=== PATIENT | female | born 1995 | race Hispanic/Latino ===

== ENCOUNTER 2018-10-27 11:24 | Inpatient (IN) | payer MEDICAID, OTHER ==
[~2018-10-27] VITALS: Ht 154.9 cm; Wt 45.8 kg
[2018-10-27 12:33] LABS: BASOPHILS % (AUTO) 0.3 % (0.0-5.0); EOSINOPHILS % (AUTO) 0.4 % (0.0-8.0); HEMATOCRIT 38.2 % (36-48); LYMPHOCYTES % (AUTO) 14.4 % (21.0-51.0); MEAN CORPUSCULAR HEMOGLOBIN 30.3 pg (27.0-33.0); MEAN CORPUSCULAR HGB CONC 34.1 g/dL (32.0-36.0); MONOCYTES % (AUTO) 4.4 % (3.0-13.0); NEUTROPHILS % (AUTO) 80.5 % (40.0-77.0); NUCLEATED RED BLOOD CELLS 0.1 % (0.0-0.19); PLATELET COUNT (AUTO) 266 K/uL (130-400); RED CELL DISTRIBUTION WIDTH 12.7 % (11.0-15.5); WHITE BLOOD COUNT (AUTO) 8.9 K/uL (4.8-10.8)
[2018-10-27 12:50] LABS: CREATININE 0.7 mg/dL (0.5-1.5); POTASSIUM 3.5 mmol/L (3.5-5.1)
[2018-10-27 12:51] LABS: INR 1.08 (0.85-1.15); PARTIAL THROMBOPLASTIN TIME 30.3 SEC (26.3-35.5); PROTHROMBIN TIME 11.3 SEC (9.6-11.6)
[2018-10-27 12:56] LABS: ALBUMIN 3.9 g/dL (3.5-5.0); BILIRUBIN,TOTAL 0.8 mg/dL (0.2-1.0); TOTAL PROTEIN, SERUM 8.2 g/dL (6.0-8.3)
[2018-10-27 13:03] LABS: APPEARANCE,URINE Clear (CLEAR); BILIRUBIN,URINE Negative (NEGATIVE); COLOR,URINE Yellow (YELLOW); GLUCOSE, URINE (UA) Negative (NEGATIVE); HCG,QUAL RESULT NEGATIVE (NEGATIVE); KETONES,URINE Trace mg/dL (NEGATIVE); LEUKOCYTE ESTERASE ,URINE Negative (NEGATIVE); NITRATE,URINE Negative (NEGATIVE); OCCULT BLOOD,URINE Negative (NEGATIVE); PROTEIN,URINE Negative (NEGATIVE)
[2018-10-27 13:12] LABS: BACTERIA,URINE Rare /HPF (None Seen); MUCUS,URINE Few LPF (None Seen); RBC,URINE 0-1 /HPF (0-1); SQUAMOUS EPITHELIAL CELL,UR Moderate /HPF (0-2)
[2018-10-27] MEDS ORDERED: APIXABAN 2.5 MG TABLET PO ONE (13:14)
[2018-10-27 13:31] LABS: B-TYPE NATRIURETIC PEPTIDE 11 pg/mL (0-100)
[2018-10-27] MEDS ORDERED: ACETAMINOPHEN 325 MG TAB PO PRN (15:15)
[2018-10-27 15:50] VITALS: BP 145/96
[2018-10-27] MEDS ORDERED: IOHEXOL-350 75 ML VIAL IV ONE (17:04)
--- NOTE | 2018-10-27 17:20 | NUR ---
DR. GREENE CONSULT DR. GREENE MADE AWARE OF CONSULT CALLED BY [employer] FOR ELEVATED D DIMER. PER , ACKNOWLEDGES CONSULT, PLACED UNDER CENSUS.
[2018-10-27 20:00] VITALS: BP 125/86
[2018-10-27] MEDS: FAMOTIDINE 20MG TAB 20 MG TAB PO SCH (20:10)
[2018-10-27] MEDS: ENOXAPARIN SODIUM 40 MG/0.4 ML SYRINGE SQ SCH (20:11)
[2018-10-27 23:55] VITALS: BP 119/75
[2018-10-28 03:30] VITALS: BP 111/76
[2018-10-28 07:52] VITALS: BP 126/77
[2018-10-28] MEDS: FAMOTIDINE 20MG TAB 20 MG TAB PO SCH ×2 (07:57→21:32)
[2018-10-28] MEDS: ENOXAPARIN SODIUM 40 MG/0.4 ML SYRINGE SQ SCH ×2 (07:58→21:41)
[2018-10-28 10:11] LABS: AMPHET/METH SCREEN,URINE NEGATIVE (NEGATIVE); BARBITURATE SCREEN, URINE NEGATIVE (NEGATIVE); BENZODIAZEPINES SCREEN,URINE NEGATIVE (NEGATIVE); CANNABINOID SCREEN,URINE NEGATIVE (NEGATIVE); COCAINE SCREEN,URINE NEGATIVE (NEGATIVE); OPIATE SCREEN,URINE NEGATIVE (NEGATIVE); PHENCYCLIDINE SCREEN,URINE NEGATIVE (NEGATIVE)
--- NOTE | 2018-10-28 10:14 | NUR ---
Message left on 's voice mail to notify of consult. Awaiting call back.
--- NOTE | 2018-10-28 10:30 | NUR ---
Dr. Burch returned call; notified of consult. He agreed to see today.
[2018-10-28 10:51] VITALS: BP 120/79
--- NOTE | 2018-10-28 10:51 | NUR ---
Rec'd call from Dr. Umanzor (IR); he stated that he would be able to proceed with IV TPA as ordered, but it must be initiated Wednesday as it is a multi-day process and cannot be completed over the weekend (today is wednesday). Notified ordering provider, Rachel Lutz NP. Rec'd order to continue with planned transfer to [facility] for now.
--- NOTE | 2018-10-28 11:00 | NUR ---
[facility] LIV[facility] W MOM, INDP, NO DME, STUDENT STARTING BACK TO [employer] [place], GOES TO [facility], GAVE MOM THE ELIQUIS 30 DAY COUPON AND THE PATIENT ASSISTANCE FORM FOR CONTINUED CARE.
--- NOTE | 2018-10-28 11:01 | NUR ---
SEE INITIAL NOTE Addendum: 10/28/18 at 1843 by ALEX BURNS RN CM Amended: Links added.
--- NOTE | 2018-10-28 11:30 | NUR ---
BIA PAYNE GIVEN TO MOM AND PATIENT ASSITSTANC EFROM FOR CONTINUED DISCOUNT Addendum: 10/28/18 at 1844 by ALEX BURNS RN CM Amended: Links added.
--- NOTE | 2018-10-28 12:02 | NUR ---
Report given to 2nd floor nurse ROSIBEL Christensen. Updated pt and mother regarding plan of care, transfer, procedure planned for Wednesday, etc. Pt transferred to room 202. Pt in stable condition at this time.
--- NOTE | 2018-10-28 12:10 | NUR ---
PT IN ROOM, TRANSFERRED FROM 4TH FLOOR AAOX3, IN NO ACUTE DISTRESS, NO SOB, LUNGS SOUNDS CLEAR BILATERALLY TO ALL ANTERIOR AND POSTERIOR LUNG HODGES, HEART STRONG AND REGULAR, NORMAL S1 AND S2, BOWEL SOUNDS NORMAL ACTIVE X4 QUADRANTS, NO TENDERNESS, SOFT, PERIPHERAL PULSES PRESENT +2 TO ALL 4 EXTREMITIES, +2 EDEMA NOTED TO THE LLE, NO EDEMA TO RLE, IV INTACT PATENT TO RIGHT A/C 20G. SKIN NO LESIONS NOR SKIN TEARS NOTED, NO BRUISES. RECEIVED REPORT FORM 4TH FLOOR ROSIBEL YANES AT 12:05.
--- NOTE | 2018-10-28 12:59 | NUR ---
HEAD TO TOE ASSESSMENT
[2018-10-28 15:05] VITALS: BP 128/81
--- NOTE | 2018-10-28 15:43 | NUR ---
RD Notification Pt tolerating current Regular diet with no report of GI distress and good PO intake (100%). Pt and mother state Pt is eating well. Pt LBM 10/27/18. Pt monitored labs: ALT 10. RD to continue to monitor. Please notify RD as nutritional concerns arise. Thank you. Addendum: 10/28/18 at [address] Amended: Links added.
--- NOTE | 2018-10-28 19:48 | NUR ---
DR. SCHREIBER CALLED STATES HE WILL FAX CHECKLIST FORM FOR TPA CONTRAINDICATIONS, PENDING FOR HIM TO FAX AND TO ORDER A CT ABD PELVIS WITH AND WO CONTR. ORDERS ENTERED HE IS PENDING TO FAX FORM. ROSIBEL PADILLA AWARE.
[2018-10-28 19:58] VITALS: BP 128/89
[2018-10-28 23:40] VITALS: BP 112/80
[2018-10-29 03:28] LABS: HEMATOCRIT 37.6 % (36-48); MEAN CORPUSCULAR HEMOGLOBIN 30.4 pg (27.0-33.0); MEAN CORPUSCULAR HGB CONC 34.3 g/dL (32.0-36.0); MEAN CORPUSCULAR VOLUME 88.7 fL (80-100); PLATELET COUNT (AUTO) 265 K/uL (130-400); RED BLOOD CELL COUNT(AUTO) 4.24 MIL/uL (4.00-5.50); RED CELL DISTRIBUTION WIDTH 12.8 % (11.0-15.5)
[2018-10-29 03:44] LABS: CREATININE 0.8 mg/dL (0.5-1.5); POTASSIUM 3.8 mmol/L (3.5-5.1)
[2018-10-29 04:45] VITALS: BP 113/74
--- NOTE | 2018-10-29 07:30 | NUR ---
ASSESSMENT ENCOUNTERED PT A&OX3, CALM COOPERATIVE AND DOES NOT APPEAR TO BE IN ANY DISTRESS NOR ANY NEURO DEFICITS PRESENT. PT DENIES PAIN, SOB, NAUSEA. LEFT FOOT WARM TO TOUCH, NONTENDER WITH PULSES PALPABLE. PT ON BEDREST UNTIL CLEARED BY RADIOLOGY. CALL LIGHT WITHIN REACH, PT IS NPO FOR PENDING CT SCAN. FAMILY AT BEDSIDE.
[2018-10-29 07:38] VITALS: BP 126/76
[2018-10-29] MEDS: ENOXAPARIN SODIUM 40 MG/0.4 ML SYRINGE SQ SCH ×2 (10:09→21:31)
[2018-10-29] MEDS ORDERED: IOHEXOL-350 75 ML VIAL IV ONE (11:19)
[2018-10-29 11:39] VITALS: BP 128/70
[2018-10-29] MEDS: FAMOTIDINE 20MG TAB 20 MG TAB PO SCH ×2 (13:30→21:30)
[2018-10-29 15:38] VITALS: BP 125/79
[2018-10-29 19:33] VITALS: BP 125/89
[2018-10-29 23:41] VITALS: BP 118/68
[2018-10-30 04:30] VITALS: BP 111/73
--- NOTE | 2018-10-30 07:20 | NUR ---
ASSESSMENT ENCOUNTERED PT A&OX3, CALM COOPERATIVE AND DOES NOT APPEAR TO BE IN ANY DISTRESS NOR ANY NEURO DEFICITS PRESENT. PT DENIES PAIN, SOB, NAUSEA. LEFT FOOT WARM TO TOUCH, NONTENDER WITH PULSES PALPABLE. PT ON BEDREST UNTIL CLEARED BY PULMONOLOGY. PT RESTING COMFORTABLY, CALL LIGHT WITHIN REACH, FAMILY AT BEDSIDE.
[2018-10-30 07:38] VITALS: BP 122/82
[2018-10-30] MEDS: ENOXAPARIN SODIUM 40 MG/0.4 ML SYRINGE SQ SCH ×2 (08:06→21:29)
[2018-10-30] MEDS: FAMOTIDINE 20MG TAB 20 MG TAB PO SCH ×2 (08:07→21:29)
[2018-10-30 11:46] VITALS: BP 117/74
--- NOTE | 2018-10-30 13:00 | NUR ---
AMBULATION OK BY DR HELTON, GAIT STEADY AND STRONG WITH STAND BY ASSIST. PT DENIES PAIN, SOB, NAUSEA. TOLERATED WELL, CALL LIGHT WITHIN REACH, FAMILY AT BEDSIDE.
[2018-10-30 15:40] VITALS: BP 114/87
[2018-10-30 19:34] VITALS: BP 110/74
[2018-10-31] VITALS (24 sets, daily range): BP systolic 103–131; BP diastolic 66–86
--- NOTE | 2018-10-31 07:29 | NUR ---
ASSESSMENT PT IS AAOX4 DENIES CP DENIES SOB DENIES NV NO COMPLAINTS AT THIS TIME, RESTING IN BED. BREATHING PATTERN IS EVEN AND UNLABORED. LLE WARM TO TOUCH, DENIES PAIN TO LEFT LEG LEFT FOOT. VISITOR IS AT BEDSIDE, CALL LIGHT WITHIN REACH.
[2018-10-31] MEDS: ENOXAPARIN SODIUM 40 MG/0.4 ML SYRINGE SQ SCH (08:37)
[2018-10-31] MEDS: FAMOTIDINE 20MG TAB 20 MG TAB PO SCH ×2 (08:37→21:33)
--- NOTE | 2018-10-31 08:37 | NUR ---
CONSENT OBTAINED FOR THROMBOLYSIS PROCEDURE. MOTHER AT BEDSIDE.
[2018-10-31] MEDS ORDERED: SODIUM BICARB 50MEQ 50ML VIAL ONE (08:41)
[2018-10-31] MEDS ORDERED: LIDOCAINE HCL 1% MDV 50ML VIAL ONE (08:41)
--- NOTE | 2018-10-31 09:25 | NUR ---
DOWN TO IR VIA BED WITH VERIFICATION REP STAFF
[2018-10-31] MEDS ORDERED: IODIXANOL 320 MG/ML 100 ML VIAL ONE (10:31)
[2018-10-31] MEDS ORDERED: FENTANYL CITRATE PF 50 MCG/1 ML 2ML VIAL ONE (10:49)
[2018-10-31] MEDS ORDERED: MIDAZOLAM HCL 1 MG/ML 2ML VIAL ONE (10:49)
[2018-10-31] MEDS ORDERED: HEPARIN 25000 UNITS/250 ML D5W 250 ML IV ONE (11:30)
[2018-10-31] MEDS ORDERED: HEPARIN 25000 UNITS/250 ML D5W 250 ML IV PRN (11:45)
[2018-10-31] MEDS ORDERED: PHARMACY COMMUNICATION MISC SCH ×2 (11:45→13:00)
[2018-10-31] MEDS ORDERED: ALTEPLASE 2 MG/2 ML IVCATH ONE (13:28)
[2018-10-31] MEDS: ACETAMINOPHEN-CODEINE 300/30MG TAB PO PRN ×2 (14:53→21:34)
[2018-10-31] MEDS ORDERED: ALTEPLASE 10 MG in SODIUM CHLORIDE 0.9% 100 ML IVCATH SCH (18:15)
[2018-10-31 20:40] LABS: PARTIAL THROMBOPLASTIN TIME 109.5 SEC (26.3-35.5)
[2018-11-01] VITALS (22 sets, daily range): BP systolic 103–144; BP diastolic 57–92
--- NOTE | 2018-11-01 04:14 | NUR ---
DR SCHREIBER MADE AWARE PTT GREATER THEN 120, FIBRINOGEN 29, SEE ORDERS
[2018-11-01 04:16] LABS: PARTIAL THROMBOPLASTIN TIME > 120.0 SEC (26.3-35.5)
[2018-11-01 04:17] LABS: FIBRINOGEN 29 mg/dL (180-350)
--- NOTE | 2018-11-01 04:18 | NUR ---
DR CAM MADE AWARE OF LABS, NO NEW ORDERS.
--- NOTE | 2018-11-01 04:35 | NUR ---
DR SCHREIBER ORDERS RECEIVED TO DECREASE HEPARIN GTT TO 1.5ML (150 UNIT). STOP TPA. REPEAT PTT/FIBRINOGEN AT 0800. SEE ORDERS
[2018-11-01 04:56] LABS: CREATININE 0.7 mg/dL (0.5-1.5); POTASSIUM 3.7 mmol/L (3.5-5.1)
[2018-11-01 04:57] LABS: BASOPHILS % (AUTO) 0.2 % (0.0-5.0); EOSINOPHILS % (AUTO) 0.7 % (0.0-8.0); HEMATOCRIT 36.1 % (36-48); LYMPHOCYTES % (AUTO) 10.1 % (21.0-51.0); MEAN CORPUSCULAR HEMOGLOBIN 30.7 pg (27.0-33.0); MEAN CORPUSCULAR VOLUME 90.4 fL (80-100); MONOCYTES % (AUTO) 7.9 % (3.0-13.0); NEUTROPHILS % (AUTO) 81.1 % (40.0-77.0); PLATELET COUNT (AUTO) 206 K/uL (130-400); RED BLOOD CELL COUNT(AUTO) 3.99 MIL/uL (4.00-5.50); RED CELL DISTRIBUTION WIDTH 13.4 % (11.0-15.5); WHITE BLOOD COUNT (AUTO) 8.7 K/uL (4.8-10.8)
[2018-11-01] MEDS: FAMOTIDINE 20MG TAB 20 MG TAB PO SCH ×2 (08:24→20:47)
--- NOTE | 2018-11-01 08:54 | NUR ---
PROCEDURE FOR AUTOMATIC BEADING LATHE OPERATOR SCHEDULED AT THIS TIME.
--- NOTE | 2018-11-01 09:29 | NUR ---
FIBRINOGEN LEVEL CALLED TO DR. SCHREIBER. WILL CONT TO MONITOR.
--- NOTE | 2018-11-01 09:45 | NUR ---
PT TAKEN TO ELECTRICAL DRAFTER.
--- NOTE | 2018-11-01 09:55 | NUR ---
PT BROUGHT BACK FROM MECHANICAL APPLICATIONS ENGINEER. PROCEDURE TO BE DONE LATER TODAY. PT TO REMAIN NPO.
[2018-11-01] MEDS ORDERED: LIDOCAINE HCL 1% 20 ML VIAL ONE (10:58)
[2018-11-01] MEDS ORDERED: SODIUM BICARB 50MEQ 50ML VIAL ONE (10:59)
[2018-11-01] MEDS ORDERED: HEPARIN SODIUM 1000UNIT/ML 10ML VIAL ONE (10:59)
[2018-11-01] MEDS ORDERED: IODIXANOL 320 MG/ML 100 ML VIAL ONE (10:59)
--- NOTE | 2018-11-01 11:33 | NUR ---
PT TAKEN TO BRANCH MANAGER.
[2018-11-01] MEDS ORDERED: MIDAZOLAM HCL 1 MG/ML 2ML VIAL ONE ×2 (12:01→14:10)
[2018-11-01] MEDS ORDERED: FENTANYL CITRATE PF 50 MCG/1 ML 2ML VIAL ONE ×2 (12:01→14:11)
--- NOTE | 2018-11-01 16:00 | NUR ---
PT BACK FROM [employer] TE[employer]ER. PT IS AAOX4, NO ACUTE DISTRESS NOTED. REPORT OBTAINED FROM BO GLEASON FOLLOWS: THROMBOLYSIS CATHETER REMOVED, VENOPLASTY AND ANGIOJET PERFORMED. REFER TO PROCEDURE REPORT. PLAN FOR STENTS TOMORROW. TO OBTAIN ORDERS FROM DR. CAM FOR HEPARIN ORDERS. RIGHT JUGULAR NOTED WITH D-STAT, NO BLEEDING, BRUISING OR HEMATOMA NOTED. LEFT POPLITEAL SITE WITH D-STAT NOTED (VENOUS) NO BRUISING, NO BLEEDING OR HEMATOMA NOTED. WILL CONT TO MONITOR. BEDREST X 4 HOURS AND NPO AFTER MN. PT AND FAMILY UPDATED ON POC.
--- NOTE | 2018-11-01 16:10 | NUR ---
CALLED DR. CAM, MESSAGE LEFT WILL AWAIT CALL BACK.
--- NOTE | 2018-11-01 16:27 | NUR ---
RECEIVED CALL BACK FROM DR. CAM. ORDERS TO RESTART ON HEPARIN 150 UNITS/HR TO KEEP PTT BETWEEN 80-100 SEC.
[2018-11-01] MEDS ORDERED: HEPARIN 25000 UNITS/250 ML D5W 250 ML IV PRN (16:30)
[2018-11-01 17:41] LABS: PARTIAL THROMBOPLASTIN TIME 104.6 SEC (26.3-35.5)
[2018-11-01] MEDS: ONDANSETRON HCL 4 MG/2 ML VIAL IV PRN ×2 (17:53→17:54)
--- NOTE | 2018-11-01 19:30 | NUR ---
ASSESSMENT PT AAOX4, PLEASANT, COOPERATIVE, FOLLOWS ALL COMMANDS. FAMILY AT BEDSIDE. IV HEPARIN AT 100UNITS/H (1ML/H). D-STAT TO RIJ AND LEFT POSTERIOR KNEE. BEDSIDE MONITOR PARAMETERS REVIEWED. WHITE BOARD UP-DATED. CALLBELL REVIEWED AND WITHIN REACH. ASSESSMENT COMPLETED, SEE FLOW SHEET.
--- NOTE | 2018-11-01 23:33 | NUR ---
ASSESSMENT PT AAOX4, PLEASANT, COOPERATIVE, FOLLOWS ALL COMMANDS. FAMILY AT BEDSIDE. IV HEPARIN AT 100UNITS/H (1ML/H). D-STAT TO RIJ AND LEFT POSTERIOR KNEE C/D/I, NO HEMATOMA NOTED. WHITE BOARD UP-DATED. CALLBELL WITHIN REACH. ASSESSMENT COMPLETED, SEE FLOW SHEET.
[2018-11-02] VITALS (15 sets, daily range): BP systolic 111–145; BP diastolic 60–97
[2018-11-02 00:15] LABS: PARTIAL THROMBOPLASTIN TIME 31.2 SEC (26.3-35.5)
--- NOTE | 2018-11-02 00:57 | NUR ---
DR CAM MADE AWARE OF PTT, ORDERS RECEIVED TO INCREASE HEPARIN TO 150 UNITS (1.5ML)
--- NOTE | 2018-11-02 03:55 | NUR ---
ASSESSMENT PT AAOX4, PLEASANT, COOPERATIVE, FOLLOWS ALL COMMANDS. FAMILY AT BEDSIDE. IV HEPARIN AT 150UNITS/H (1.5ML/H). D-STAT TO RIJ AND LEFT POSTERIOR KNEE C/D/I, NO HEMATOMA NOTED. WHITE BOARD UP-DATED. CALLBELL WITHIN REACH. ASSESSMENT COMPLETED, SEE FLOW SHEET.
[2018-11-02 06:36] LABS: BASOPHILS % (AUTO) 1.8 % (0.0-5.0); EOSINOPHILS % (AUTO) 2.1 % (0.0-8.0); HEMATOCRIT 38.5 % (36-48); LYMPHOCYTES % (AUTO) 21.5 % (21.0-51.0); MEAN CORPUSCULAR HGB CONC 34.4 g/dL (32.0-36.0); MEAN CORPUSCULAR VOLUME 90.1 fL (80-100); MONOCYTES % (AUTO) 7.2 % (3.0-13.0); NEUTROPHILS % (AUTO) 67.4 % (40.0-77.0); PLATELET COUNT (AUTO) 203 K/uL (130-400); RED BLOOD CELL COUNT(AUTO) 4.27 MIL/uL (4.00-5.50); RED CELL DISTRIBUTION WIDTH 13.2 % (11.0-15.5); WHITE BLOOD COUNT (AUTO) 8.4 K/uL (4.8-10.8)
[2018-11-02 06:43] LABS: CREATININE 0.9 mg/dL (0.5-1.5); POTASSIUM 4.1 mmol/L (3.5-5.1)
[2018-11-02] MEDS: FAMOTIDINE 20MG TAB 20 MG TAB PO SCH ×2 (08:06→20:02)
[2018-11-02] MEDS ORDERED: IODIXANOL 320 MG/ML 100 ML VIAL ONE (11:08)
[2018-11-02] MEDS ORDERED: SODIUM BICARB 50MEQ 50ML VIAL ONE (11:08)
[2018-11-02] MEDS ORDERED: LIDOCAINE HCL 1% 20 ML VIAL ONE (11:08)
[2018-11-02] MEDS ORDERED: MIDAZOLAM HCL 1 MG/ML 2ML VIAL ONE ×2 (11:10→12:03)
[2018-11-02] MEDS ORDERED: FENTANYL CITRATE PF 50 MCG/1 ML 2ML VIAL ONE (11:10)
[2018-11-02] MEDS ORDERED: HEPARIN SODIUM 1000UNIT/ML 10ML VIAL ONE (11:21)
[2018-11-02] MEDS: ACETAMINOPHEN-CODEINE 300/30MG TAB PO PRN ×2 (16:26→20:01)
--- NOTE | 2018-11-02 16:39 | NUR ---
REPORT GIVEN TO LOLA GLEASON. ALL QUESTIONS ANSWERED. ENDORSED PAIN REASSESSMENT, POST CATH ASSESSMENTS.
--- NOTE | 2018-11-02 16:40 | NUR ---
TRANSFER PT RECEIVED FROM ICU VIA BED. TOLERATED TRANSFER WELL. FAMILY @ BEDSIDE. A/O X 3. NO SOB. NO DISTRESS NOTED. DENIES INCISIONAL PAIN. DENIES N/V AND/OR DIARRHEA. HEPARIN INFUSING @ 200 UNITS/HR (2ML/HR). PTT DUE @ 1800, GOAL 80-100. PO ANTICOAGULATION TO BE STARTED TOMORROW. S/P VENOGRAM/VENOPLASTY; STENT LT FEMORAL & ILIAC. LT POPLITEAL ACCESS. SITE WELL APPROXIMATED. NO BLEEDING, NO HEMATOMA NOTED. BLE PINK & WARM TO TOUCH. BILATERAL SCDs ON. BEDREST UNTIL 1800. ORIENTED TO . INSTRUCTED TO CALL FOR ASSISTANCE. CALL PHILLIP W/IN REACH.
[2018-11-02 19:23] LABS: INR 1.11 (0.85-1.15); PROTHROMBIN TIME 11.6 SEC (9.6-11.6)
--- NOTE | 2018-11-02 20:06 | NUR ---
was called and notified regarding PTT result received new order.Pt. medicated with Tylenol with codeine for menstrual cramps 5/10 pain level.
--- NOTE | 2018-11-02 20:21 | NUR ---
Received call from to start pt on Plavix 75mg po now since pt has a stent.
[2018-11-02] MEDS: CLOPIDOGREL BISULFATE 75 MG TAB PO SCH (21:06)
[2018-11-03 03:52] VITALS: BP 137/85
[2018-11-03] MEDS: ONDANSETRON HCL 4 MG/2 ML VIAL IV PRN (06:46)
[2018-11-03 07:26] VITALS: BP 137/83
--- NOTE | 2018-11-03 08:15 | NUR ---
MD NOTIFICATION DR CAM NOTIFIED PTT 30.8. ORDER RECEIVED TO DC HEPARIN GTT & START PT ON ELIQUIS 5 MG PO BID.
[2018-11-03] MEDS ORDERED: APIXABAN 5 MG TABLET PO ONE (08:18)
--- NOTE | 2018-11-03 08:20 | NUR ---
AM ASSESSMENT PT LAYING IN BED, HOB ELEVATED 30 DEGREES, RESTING. MOTHER @ BEDSIDE. A/O X 3. NO SOB. NO DISTRESS NOTED. DENIES INCISIONAL PAIN. C/O BACK PAIN R/T PMS. PO PAIN MEDICATION TO BE GIVEN. TELE: STACH 100s. DENIES N/V AND/OR DIARRHEA. LT LEG PUNCTURE INCISION DSG DRY & INTACT. NO BLEEDING, NO HEMATOMA NOTED. (+) BILATERAL STRONG PEDAL PULSES. BLE PINK & WARM TO TOUCH. UP W/ASSISTANCE. INSTRUCTED TO CALL FOR ASSISTANCE. CALL PHILLIP W/IN REACH. HEPARIN GTT DC'D @ THIS TIME. PT & PT'S MOTHER UPDATED ON PLAN OF CARE.
[2018-11-03] MEDS: FAMOTIDINE 20MG TAB 20 MG TAB PO SCH ×2 (08:21→21:42)
[2018-11-03] MEDS: CLOPIDOGREL BISULFATE 75 MG TAB PO SCH (08:21)
[2018-11-03] MEDS: ACETAMINOPHEN-CODEINE 300/30MG TAB PO PRN (08:27)
[2018-11-03] MEDS: APIXABAN 5 MG TABLET PO SCH ×2 (08:47→21:41)
[2018-11-03 11:24] VITALS: BP 119/88
[2018-11-03 15:00] VITALS: BP 130/84
[2018-11-03 19:20] VITALS: BP 118/72
--- NOTE | 2018-11-03 20:00 | NUR ---
ASSESSMENT AWAKE. UP IN ROOM. C/O BACK PAIN BUT RECEIVED TYLENOL EARLIER AND DOES NOT WANT ANYTHING ELSE. ASSESSMENT COMPLETED. SEE FLOW SHEET. ENCOURAGED TO CALL FOR WANTS OR NEEDS. Addendum: 11/03/18 at 2033 by RED OROPEZA RN RN Amended: Links added.
[2018-11-03 23:34] VITALS: BP 119/68
[2018-11-04 04:09] VITALS: BP 122/76
[2018-11-04 08:00] VITALS: BP 125/78
[2018-11-04] MEDS: FAMOTIDINE 20MG TAB 20 MG TAB PO SCH (08:07)
[2018-11-04] MEDS: APIXABAN 5 MG TABLET PO SCH (08:07)
[2018-11-04] MEDS: CLOPIDOGREL BISULFATE 75 MG TAB PO SCH (08:07)
[2018-11-04 12:00] VITALS: BP 132/76
--- NOTE | 2018-11-04 14:34 | NUR ---
RD Follow up Pt s/p thrombolysis and stenting as per EMR. Pt continues to tolerate Regular diet with fair PO intake at 75% as per Pt. Pt with reports no GI distress and had a BM today. Monitored labs: Na 135, Cl 98. No other nutrition concerns at this time. Please notify RD as nutritional concerns arise. Thank you. Addendum: 11/04/18 at [address] Amended: Links added.
[2018-11-04] MEDS ORDERED: APIX5TAB PO (15:23)
[2018-11-04] MEDS ORDERED: ACET-2247 PO (15:23)
[2018-11-04] MEDS ORDERED: CLOP75TA14 PO (15:23)
[2018-11-04 16:00] VITALS: BP 117/70
--- NOTE | 2018-11-04 16:55 | NUR ---
DERICK PLAN VISITED WITH PATIENT. GAVE PATIENT LOW INCOME CLINIC PACKET, LOW MED PACKET, ELIQUIS 30 DAY COUPON. ELIQUIS PATIENT INFORMATION BROCHURE. EXPLAINED MD PLAN. GIVE TODAY DOSE OF ELIQUIS. GO TO PHARMACY FOR 30 DAY SUPPLY IF CAN NOT GET THEN GO TO PRIMARY AND CHANGE TO COUMADIN PER MD. PATIENT AND PARENT VERBALIZED UNDERSTANDING. Addendum: 11/04/18 at 1658 by DARIEN ROQUE RN CM Amended: Links added.
== END 2018-11-04 17:30 | disposition home or self-care (01) | DRG 271 ==
LOC: EDH 11:24 → OBSVTOIN 14:14 → EDHIP 14:14 → 4AH 15:50 → 2AH 10-28 11:55 → 2CH 10-31 10:43 → 2DH 11-02 16:52
PROVIDERS: ADMIT Hospitalist; ATTEND Hospitalist
PROC: B51C1ZZ Fluoroscopy of Left Lower Extremity Veins using Low Osmolar Contrast (ICD-10-PCS; principal; 2018-11-01)
PROC: 06CG3ZZ Extirpation of Matter from Left External Iliac Vein, Percutaneous Approach (ICD-10-PCS; 2018-11-01)
PROC: 06CN3ZZ Extirpation of Matter from Left Femoral Vein, Percutaneous Approach (ICD-10-PCS; 2018-11-01)
PROC: 047J3ZZ Dilation of Left External Iliac Artery, Percutaneous Approach (ICD-10-PCS; 2018-11-01)
PROC: 047L3ZZ Dilation of Left Femoral Artery, Percutaneous Approach (ICD-10-PCS; 2018-11-01)
PROC: 047D3ZZ Dilation of Left Common Iliac Artery, Percutaneous Approach (ICD-10-PCS; 2018-11-01)
PROC: 3E03317 Introduction of Other Thrombolytic into Peripheral Vein, Percutaneous Approach (ICD-10-PCS; 2018-11-01)
PROC: 04CD3ZZ Extirpation of Matter from Left Common Iliac Artery, Percutaneous Approach (ICD-10-PCS; 2018-11-04)
PROC: 047D3DZ Dilation of Left Common Iliac Artery with Intraluminal Device, Percutaneous Approach (ICD-10-PCS; 2018-11-04)
PROC: 047L3DZ Dilation of Left Femoral Artery with Intraluminal Device, Percutaneous Approach (ICD-10-PCS; 2018-11-04)
PROC: B51C1ZZ Fluoroscopy of Left Lower Extremity Veins using Low Osmolar Contrast (ICD-10-PCS; 2018-11-04)
DX: I82.412 Acute embolism and thrombosis of left femoral vein (principal); D68.59 Other primary thrombophilia; I74.5 Embolism and thrombosis of iliac artery; I87.1 Compression of vein; I82.422 Acute embolism and thrombosis of left iliac vein; K76.0 Fatty (change of) liver, not elsewhere classified; I70.8 Atherosclerosis of other arteries; Z79.01 Long term (current) use of anticoagulants; Z83.79 Family history of other diseases of the digestive system
CPT/HCPCS: 36005; 36415; 37184; 37185; 37187; 37188; 37212; 37214; 37238; 37239; 37247; 37248; 37249; 71275; 74178; 75710; 75820; 80048; 80053; 80305; 81001; 81025; 83880; 85025; 85027; 85378; 85384; 85610; 85730; 93005; 93971; 99156; 99157; C1725; C1757; C1769; C1894; G0378; J1644; J1650; J2250; J2405; J2997; J3010; J3490; Q9967

== ENCOUNTER → 2018-12-07 | Outpatient (CLI) | payer OTHER, SELFPAY ==
[~2018-12-07] MED LIST: ACET-2247 PO; APIX5TAB PO; CLOP75TA14 PO
== END | disposition home or self-care (01) ==
LOC: RAH 08:51
PROVIDERS: ATTEND Internal Medicine Hematology & Oncology
DX: I82.412 Acute embolism and thrombosis of left femoral vein (principal); I82.432 Acute embolism and thrombosis of left popliteal vein; Z79.02 Long term (current) use of antithrombotics/antiplatelets
CPT/HCPCS: 93971